=== PATIENT | female | born 1985 | race Two or more races ===

== ENCOUNTER 2020-12-08 17:20 | Emergency (ER) | payer SELFPAY ==
[~2020-12-08] VITALS: Ht 152.4 cm; Wt 77.0 kg
--- NOTE | 2020-12-08 17:31 | NUR ---
BIB [facility], PT WITH C/O SEVERE DEHYDRATION D/ MULTIPLE EPISODES OF VOMITTING. PT DRINKING BEER AT [employer] FOR THE LAST FEW DAYS, STATES NO WATER INTAKE. NO ABD DISCOMFORT, PT N/RESOLVED. PIV STARTED BY KAE, PT GIVEN APPROX 400CC NS. PT BP, CONT PULSE OX. AWAITING ER MD CALLAHAN.
[2020-12-08] MEDS ORDERED: SODIUM CHLORIDE 0.9% 1,000ML IVBOLUS ONE (18:00)
[2020-12-08] MEDS ORDERED: SODIUM CHLORIDE FLUSH 10ML SYR IVF ONE (18:00)
--- NOTE | 2020-12-08 18:20 | NUR ---
PT AMBULATED TO BR WITH STEADY GAIT, UA COLLECTED AND SENT TO LAB. NO OTHER NEEDS AT THIS TIME
[2020-12-08 18:29] LABS: MICROSCOPIC AUTO
[2020-12-08 18:32] LABS: BASOPHILS % (AUTO) 1 % (0-1); EOSINOPHILS % (AUTO) 1 % (1-7); LYMPHOCYTES % (AUTO) 17 % (22-44); MEAN CORPUSCULAR HEMOGLOBIN 31.5 pg (27.0-34.8); MEAN CORPUSCULAR HGB CONC 33.8 g/dL (32.4-35.8); MEAN PLATELET VOLUME 8.7 fL (7.4-10.4); MONOCYTES % (AUTO) 5 % (2-9); NEUTROPHILS % (AUTO) 76 % (42-75); PLATELET COUNT 266 x10^3/uL (130-400); RED BLOOD COUNT 4.48 x10^6/uL (3.82-5.3); RED CELL DISTRIBUTION WIDTH 13.6 % (9.6-15.2)
[2020-12-08 18:41] LABS: ALANINE AMINOTRANSFERASE 35 U/L (12-78); ANION GAP 7 mmol/L (5-15); CHLORIDE 106 mmol/L (98-107)
[2020-12-08 18:46] LABS: ALKALINE PHOSPHATASE 69 U/L (45-117); BILIRUBIN,TOTAL 0.4 mg/dL (0.2-1.0); CREATINE KINASE, TOTAL 127 U/L (26-192); CREATININE 0.77 mg/dL (0.55-1.02)
--- NOTE | 2020-12-08 18:54 | NUR ---
REPORT FROM BRE MOLINA
[2020-12-08 19:52] VITALS: BP 102/67
== END 2020-12-08 20:01 | disposition home or self-care (01) ==
LOC: ED 19:50
DX: T67.3XXA Heat exhaustion, anhydrotic, initial encounter (principal); R11.10 Vomiting, unspecified; G40.909 Epilepsy, unspecified, not intractable, without status epilepticus; X58.XXXA Exposure to other specified factors, initial encounter; Y93.89 Activity, other specified; Y92.89 Other specified places as the place of occurrence of the external cause; Y99.8 Other external cause status
CPT/HCPCS: 36415; 80053; 81001; 82550; 84703; 85025; 96360; 99283; J7030